=== PATIENT | female | born 1975 | race Caucasian/White ===

== ENCOUNTER 2018-05-16 11:58 | Outpatient (CLI) | payer OTHER ==
[~2018-05-16 11:58] MED LIST: IOPAMIDOL-300 100 ML VIAL ONE; IOPAMIDOL-300 50 ML VIAL ONE
[2018-05-16] MEDS ORDERED: IOPAMIDOL-300 100 ML VIAL IVP ONE (13:06)
[2018-05-16] MEDS ORDERED: IOPAMIDOL-300 50 ML VIAL PO ONE (13:06)
--- NOTE | 2018-05-16 17:41 | CT Report ---
Reason: DIASTASIS RECTI,UMBILICAL HERNIA Procedure Date: 05/16/2018 Accession Number: [id number] / [id number] Procedure: CT - Abdomen/Pelvis W/ CPT Code: FULL RESULT: EXAM: CT ABDOMEN AND PELVIS EXAM DATE: 05/16/2018 01:04 PM. CLINICAL HISTORY: Umbilical hernia COMPARISONS: None. TECHNIQUE: Routine helical CT imaging was performed through the abdomen and pelvis. IV contrast: 100 cc Isovue-[id number]. Enteric contrast: Yes. Reconstructions: Coronal and sagittal. In accordance with CT protocol optimization, one or more of the following dose reduction techniques were utilized for this exam: automated exposure control, adjustment of mA and/or KV based on patient size, or use of iterative reconstructive technique. FINDINGS: Lung Bases: Unremarkable. Liver: Normal. No masses. Gallbladder/Bile Ducts: Unremarkable. Spleen: Normal. Pancreas: Normal. Adrenal Glands: Normal. Kidneys: Normal. No masses or hydronephrosis. Peritoneal Cavity/Bowel: Normal. No free fluid, free air or adenopathy. No masses or acute inflammatory process. The appendix is well visualized and normal. Pelvic Organs: Normal. The visualized pelvic organs appear within normal limits. The bladder is decompressed and therefore follow evaluated. Vasculature: No aneurysms or other abnormality. Bones: No bone lesions. There is a fat-containing umbilical helical hernia with a 1.0 cm neck. Rectus diastases measures 4.6 cm. IMPRESSION: Very small umbilical hernia. Rectus diastases. RADIA
== END 2018-05-16 11:59 | disposition home or self-care (01) ==
LOC: DI 11:58
PROVIDERS: ATTEND Internal Medicine Gastroenterology
DX: M62.08 Separation of muscle (nontraumatic), other site (principal); K42.9 Umbilical hernia without obstruction or gangrene
CPT/HCPCS: 74177; Q9967